=== PATIENT | male | born 1950 | race Caucasian/White ===

== ENCOUNTER 2023-05-02 14:24 | Emergency (ER) | payer MEDICARE, SELFPAY ==
[2023-05-02 14:25] VITALS: BP 197/128; PULSE 109; RESP 18; TEMP 36.8; O2SAT 96; BMI 23.6
--- NOTE | 2023-05-02 14:31 | XRR_ITS ---
PROCEDURE INFORMATION: Exam: XR Chest Exam date and time: 05/02/2023 3:00 PM Age: 73 years old Clinical indication: Other: Tachycardia, HTN TECHNIQUE: Imaging protocol: Radiologic exam of the chest. Views: 1 view. COMPARISON: No relevant prior studies available. FINDINGS: Lungs: No focal consolidation. Pleural spaces: No pleural effusion. No pneumothorax. Heart/Mediastinum: No cardiomegaly. Bones/joints: No acute findings. XR/XR chest 1V portable [id number] IMPRESSION: No acute findings.
[2023-05-02 14:43] LABS: Basophils # 0.1 10^3/uL (0.0-0.1); Basophils % 0.5 %; Eosinophils # 0.2 10^3/uL (0.0-0.8); Eosinophils % 2.1 %; Hematocrit 45.9 % (37-53); Lymphocytes # 3.8 10^3/uL (0.8-4.8); Lymphocytes % 39.8 %; Mean Corpuscular HGB Conc 34.4 g/dL (30-55); Mean Corpuscular Hemoglobin 32.8 pg (27-33); Mean Corpuscular Volume 95.2 fl (82-101); Mean Platelet Volume 9.1 fL (7.4-10.4); Monocytes # 0.7 10^3/uL (0.2-0.9); Neutrophils # 4.65 10^3/uL (1.8-7.7); Neutrophils % 48.9 %; Nucleated Red Blood Cells % 0 %; Platelet Count 311 10^3/cmm (157-399); Red Blood Count 4.82 10^6/uL (3.85-5.65); Red Cell Distribution Width 12.1 % (12.1-15.1); White Blood Count 9.52 10^3/uL (3.29-11.43)
--- NOTE | 2023-05-02 14:49 | W.ED.ARRPALP ---
HPI - Arrhythmia/Palpitations General: Chief Complaint: Arrhythmia/Palpitations Stated Complaint: HTN Time Seen by Provider: 05/02/23 14:27 History of Present Illness: Patient presents to the ER with complaints of sudden onset heart racing. Patient said he was eating lunch about 1:00 and noticed his heart was racing he got up and put a pulse oximeter on knows his heart was about 140 beats a minute. Patient says his normal heart rate is about 70-80 beats a minute. Patient also notes he had high blood pressure. Upon arrival here his blood pressure was 197/128 he says normal pressure is about 130/70. Patient is on lisinopril for blood pressure. Denies missing any doses or denies any chest pain or history of atrial fibrillation. Review of Systems General: Reports: 10 or more systems reviewed and unremarkable except in HPI and below Physical Exam Const: COMMON NORMALS: no acute distress, average body habitus, patient oriented x3, no limitations, healthy appearing, alert and well nourished HENMT: COMMON NORMALS: normocephalic, atraumatic, hearing grossly normal bilaterally, external ears normal, Normal external nose present, moist oral mucous membranes and oropharynx normal HEAD & SCALP: normocephalic and atraumatic NOSE: Normal external nose present EXTERNAL EAR: Yes external ears normal Neck/C-Spine: COMMON NORMALS: no JVD Chest: COMMONS NORMALS: normal inspection of the chest and normal palpation of entire chest wall Resp: COMMON NORMALS: normal respiratory effort, No retractions, No use of accessory muscles and clear to auscultation bilaterally AUSCULTATION: clear to auscultation bilaterally Cardio: COMMON NORMALS: no JVD, regular rhythm, S1 normal heart sound present, S2 normal heart sound present, No gallops present (Cardio), No clicks present (Cardio), No murmurs present (Cardio) and No rub (Cardio); negative for regular rate (Tachycardic) RATE: abnormal rate (Tachycardic) RHYTHM: regular rhythm HEART SOUNDS: S1 normal heart sound present and S2 normal heart sound present GI: COMMON NORMALS: Normal to inspection, nondistended, normoactive bowel sounds present, Soft to palpation, non-tender, No hepatosplenomegaly present and no masses PALPATION: Yes Soft to palpation and Yes No hepatosplenomegaly present Neuro: COMMON NORMALS: patient oriented x3 SENSORIUM/ORIENTATION: Yes alert Course Vital Signs: Vital signs: Vital Signs Temperature 98.2 F 05/02/23 14:25 Pulse Rate 87 05/02/23 16:41 Respiratory Rate 16 05/02/23 16:41 Blood Pressure 148/74 05/02/23 16:41 Pulse Oximetry 96 05/02/23 15:35 Oxygen Delivery Me thod Room Air 05/02/23 15:35 MDM - Arrhythmia/Palpitations Medical Decision Making Patient had serial EKGs, labs, chest x-ray, all of which were essentially benign for acute cardiac issues. Patient was given 20 mg labetalol IV which lowered his blood pressure to 148/74 and his pulse of 87. Patient be discharged home to follow-up with his PCP for further evaluation and treatment. Differential Diagnosis Unlikely palpitations, anxiety, sinus tachycardia, artial fibrillation, artial flutter, ventricular premature beats, supraventricular tachycardia, ventricular tachycardia or WPW Medical Records I reviewed the patient's medical records. Lab Data I reviewed the patient's lab results. 05/02/23 14:30 05/02/23 14:30 Radiology Impressions Chest X-Ray 05/02/23 14:31 IMPRESSION: No acute findings. Laboratory Results WBC 9.52 10^3/uL (3.29-11.43) 05/02/23 14:30 RBC 4.82 10^6/uL (3.85-5.65) 05/02/23 14:30 Hgb 15.80 g/dL (11.27-16.99) 05/02/23 14:30 Hct 45.9 % (37-53) 05/02/23 14:30 MCV 95.2 fl (82-101) 05/02/23 14:30 MCH 32.8 pg (27-33) 05/02/23 14:30 MCHC 34.4 g/dL (30-55) 05/02/23 14:30 RDW 12.1 % (12.1-15.1) 05/02/23 14:30 Plt Count 311 10^3/cmm (157-399) 05/02/23 14:30 MPV 9.1 fL (7.4-10.4) 05/02/23 14:30 Neut % (Auto) 48.9 % 05/02/23 14:30 Lymph % (Auto) 39.8 % 05/02/23 14:30 [place] % (Auto) 7.0 % 05/02/23 14:30 Eos % (Auto) 2.1 % 05/02/23 14:30 Baso % (Auto) 0.5 % 05/02/23 14:30 Neut # (Auto) 4.65 10^3/uL (1.8-7.7) 05/02/23 14:30 Lymph # (Auto) 3.8 10^3/uL (0.8-4.8) 05/02/23 14:30 [place] # (Auto) 0.7 10^3/uL (0.2-0.9) 05/02/23 14:30 Eos # (Auto) 0.2 10^3/uL (0.0-0.8) 05/02/23 14:30 Baso # (Auto) 0.1 10^3/uL (0.0-0.1) 05/02/23 14:30 Nucleated RBC % (auto) 0 % 05/02/23 14:30 Nucleated RBCs # 0.0 /100WBC 05/02/23 14:30 Sodium 140 mmol/L (136-145) 05/02/23 14:30 Potassium 3.9 mmol/L (3.5-5.1) 05/02/23 14:30 Chloride 101 mmol/L (98-107) 05/02/23 14:30 Carbon Dioxide 23 mmol/L (22-29) 05/02/23 14:30 Anion Gap 19.9 (5-19) H 05/02/23 14:30 BUN 16 mg/dL (8-23) 05/02/23 14:30 Creatinine 1.0 mg/dL (0.7-1.2) 05/02/23 14:30 GFR Calculation Not Reportable 05/02/23 14:30 Glucose 180 mg/dL (65-115) H 05/02/23 14:30 Calculated Osmolality 296 mOsm/kg (285-295) H 05/02/23 14:30 Calcium 9.5 mg/dL (8.5-10.5) 05/02/23 14:30 Magnesium 2.2 mg/dL (1.7-2.3) 05/02/23 14:30 Total Bilirubin 0.7 mg/dL (0.15-1.2) 05/02/23 14:30 AST 24 U/L (0-40) 05/02/23 14:30 ALT 29 U/L (0-41) 05/02/23 14:30 Alkaline Phosphatase 69 U/L (40-130) 05/02/23 14:30 Troponin T Baseline 8 ng/L (0-15) 05/02/23 14:30 Troponin T 120 Minute 10.90 ng/L (0-15) 05/02/23 16:28 Delta Troponin T 2.90 ABS# (0-10) 05/02/23 16:28 Total Protein 7.2 g/dL (6.6-8.7) 05/02/23 14:30 Albumin 4.5 g/dL (3.5-5.2) 05/02/23 14:30 Globulin 2.7 g/dL (1.3-4.6) 05/02/23 14:30 TSH 2.74 uIU/mL (0.27-4.20) 05/02/23 14:30 All radiology interpretation(s) finalized by discharge EKG Data EKG 1: I personally reviewed and interpreted this EKG as follows: EKG interpretation date: 05/02/23 EKG interpretation time: 14:34 Prior EKG tracings: not available for review Interpretation: EKG shows ventricular rate 111 bpm, [place] interval 205, QRS duration 106, QTc of 392, sinus tachycardia, incomplete right bundle branch block Other EKG comments: Chest X-Ray 05/02/23 14:31 IMPRESSION: No acute findings. EKG 2: I personally reviewed and interpreted this EKG as follows: EKG interpretation date: 05/02/23 EKG interpretation time: 16:04 Prior EKG tracings: available for review Interpretation: EKG showed ventricular rate 85 beats minute, [place] interval 192, QRS duration 108, QTc of 412, sinus rhythm, incomplete right bundle branch block Other EKG comments: Chest X-Ray 05/02/23 14:31 IMPRESSION: No acute findings. Discharge Plan Discharge Patient Disposition: Home Clinical Impression: Sinus tachycardia Hypertension Qualifiers: Hypertension type: unspecified Qualified Code(s): I10 - Essential (primary) hypertension Condition: Stable Prescriptions: No Action celecoxib 200 mg capsule 200 mg PO BID lisinopril 10 mg tablet 10 mg PO QAM omeprazole 20 mg capsule,delayed release(DR/EC) 20 mg PO QAM rosuvastatin 5 mg tablet 5 mg PO QAM Discharge Orders: Discharge ED (Routine); Ordered 05/02/23 Ordered By: César Schmitt Referrals: Saman Blake MD [Primary Care Provider] - 1 week Patient Instructions: Hypertension (ED), Tachycardia (ED) Activity Restrictions/Additional Instructions: Your lab work formed in ER was essentially benign and did not show any acute cause of your tachycardia and sudden hypertensive episode. Please follow-up with your family practice physician for further evaluation testing within the next 7 days as needed. Coding Level of Care Code ED Good Humor Vendor for Ashlee Freeman
[2023-05-02 15:02] LABS: Troponin(5th) Baseline 8 ng/L (0-15)
[2023-05-02 15:09] LABS: Alanine Aminotransferase 29 U/L (0-41); Albumin Level 4.5 g/dL (3.5-5.2); Alkaline Phosphatase 69 U/L (40-130); Anion Gap 19.9 (5-19); Aspartate Amino Transferase 24 U/L (0-40); Blood Urea Nitrogen 16 mg/dL (8-23); Calcium 9.5 mg/dL (8.5-10.5); Carbon Dioxide 23 mmol/L (22-29); Chloride 101 mmol/L (98-107); Creatinine Clr Calc Pharmacy 68.4729; Globulin 2.7 g/dL (1.3-4.6); Glucose 180 mg/dL (65-115); Magnesium 2.2 mg/dL (1.7-2.3); Osmolality Calculated 296 mOsm/kg (285-295); Potassium 3.9 mmol/L (3.5-5.1); Sodium 140 mmol/L (136-145); Thyroid Stimulating Hormone 2.74 uIU/mL (0.27-4.20); Total Bilirubin 0.7 mg/dL (0.15-1.2); Total Protein 7.2 g/dL (6.6-8.7)
[2023-05-02] MEDS: labetalol 5 mg/mL SDV 20mL 20 MG IVP (15:27)
[2023-05-02 15:35] VITALS: BP 168/96; PULSE 85; RESP 18; O2SAT 96
--- NOTE | 2023-05-02 16:04 | ECG_ITS ---
[facility] Test Date: 2023-05-02 Pat Name: Shelia Acosta Department: Room: Gender: Male Immigration Associate: : 1950 Requested By: César Schmitt Order Number: [id number] Ibeth MD: Salo Polo M.D. Measurements Intervals [place] Rate: 85 P: 40 NM: 192 QRS: -2 QRSD: 108 T: 30 QT: 370 QTc: 442 Interpretive Statements SINUS RHYTHM INCOMPLETE RIGHT BUNDLE BRANCH BLOCK [90+ ms QRS DURATION, TERMINAL R IN V1/V2, 40+ ms S IN I/aVL/V4/V5/V6] Compared to ECG 05/02/2023 14:34:21 Sinus tachycardia no longer present Electronically Signed On 05-02-2023 22:01:27 HOUSE CARPENTER HELPER by Salo Polo M.D. [id number]
[2023-05-02 16:41] VITALS: BP 148/74; PULSE 87; RESP 16
--- NOTE | 2023-05-02 20:31 | ECG_ITS ---
[facility] Test Date: 2023-05-02 Pat Name: Shelia Acosta Department: Room: Gender: Male Information Security Consultant: : 1950 Requested By: Céasr Schmitt Order Number: [id number] Ibeth MD: Salo Polo M.D. Measurements Intervals [place] Rate: 111 P: 48 PA: 205 QRS: -19 QRSD: 106 T: 30 QT: 327 QTc: 445 Interpretive Statements SINUS TACHYCARDIA INCOMPLETE RIGHT BUNDLE BRANCH BLOCK [90+ ms QRS DURATION, TERMINAL R IN V1/V2, 40+ ms S IN I/aVL/V4/V5/V6] ABNORMAL RHYTHM ECG No previous ECG available for comparison Electronically Signed On 05-02-2023 22:00:10 CHILD AND ADOLESCENT PSYCHIATRIST by Salo Polo M.D. [id number]
== END 2023-05-02 18:18 | disposition home or self-care (01) ==
PROVIDERS: Emergency Provider Emergency Medicine; PCP Family Medicine
DX: R00.0 Tachycardia, unspecified (principal); I10 Essential (primary) hypertension
CPT/HCPCS: 36415; 71045; 80053; 83735; 84443; 84484; 85025; 93005; 96374; 99285; J3490

== ENCOUNTER 2024-01-13 08:32 | Outpatient (RCR) | payer MEDICARE, SELFPAY | END 2024-02-04 23:59 | disposition home or self-care (01) | LOC: SPT 08:32 | PROVIDERS: PCP Family Medicine; Visit Provider Family Medicine | DX: R42 Dizziness and giddiness (principal) | CPT/HCPCS: 95992; 97161 ==